=== PATIENT | female | born 1935 | race Caucasian/White ===

== ENCOUNTER 2017-08-26 23:10 | Emergency (ER) | payer OTHER ==
[2017-08-26 23:16] VITALS: TEMP 97.5
--- NOTE | 2017-08-26 23:17 | EDPHY ---
H & P Stated Complaint: Burning sensation in R hand, poss reactin to clindamycin Time Seen by Provider: 08/26/17 23:15 HPI/ROS: HPI CHIEF COMPLAINT: Burning in finger tips of the left hand. HISTORY OF PRESENT ILLNESS: This patient very pleasant 81-year-old female she presents emergency room with sudden onset burning sensation in the finger tips only on the palmar side of her left hand. She was recently seen by her net sorter and diagnosed with a toe infection of the 2nd toe. She had I and D today and placed on clindamycin. She took clindamycin twice today and has otherwise done well but around 10 30 at night she developed sudden-onset burning sensation the finger tips of her left hand. She was concerned she may be having a reaction to her antibiotic. She denies any chest pain or shortness of breath. Denies headache. Denies focal numbness or tingling or weakness. She states she has had this burning sensation in her finger tips before and had evaluated but was unsure what the causes. She does have peripheral neuropathy. 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 She does complain of some pain in her left leg where she has an infection currently. She states there is mild erythema to the left lower extremity. She states the swelling has gotten slightly worse since seen by her doctor earlier today. Past Medical History: AFib with RVR, tachy-aruna syndrome, renal artery stenosis, GERD renal artery stenosis, pneumonia, peripheral neuropathy on lyrica Past Surgical History: No recent surgery but had an I and D on her left foot 2nd toe. Social History: Denies drugs alcohol tobacco products. Family History: Noncontributory ROS REVIEW OF SYSTEMS: A comprehensive 10 point review of systems is otherwise negative aside from elements mentioned in the history of present illness. Exam Constitutional appears well nontoxic no acute distress, triage nursing summary reviewed, vital signs reviewed, awake/alert. Eyes normal conjunctivae and sclera, EOMI, PERRLA. HENT normal inspection, atraumatic, moist mucus membranes, no epistaxis, neck supple/ no meningismus, no raccoon eyes. Respiratory clear to auscultation bilaterally, normal breath sounds, no respiratory distress, no wheezing. Cardiovascular rate normal, regular rhythm, no murmur, no edema, distal pulses normal. Gastrointestinal soft, non-tender, no rebound, no guarding, normal bowel sounds, no distension, no pulsatile mass. Genitourinary no CVA tenderness. Musculoskeletal no midline vertebral tenderness, full range of motion, no calf swelling, no tenderness of extremities, no meningismus, good pulses, neurovascularly intact. Skin left lower extremity: Mild erythema to the left lower extremity specifically anterior tib-fib region, 2nd toe is infected recent I and D bandage in place. Left hand: Good radial pulse. Good cap refill. 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 Burning sensation to the finger tips of the left hand all 5 of them palmar side only. No arm weakness or left hand weakness. Neurologic awake, alert and oriented x 3, AAOx3, moves all 4 extremities equally, motor intact, sensory intact, CN II-XII intact, normal cerebellar, normal vision, normal speech. Psychiatric normal mood/affect. Heme/Lymph/Immune no lymphadenopathy. Differential Diagnosis: Includes but is not limited to in a particular order neuropathy, left lower extremity cellulitis, toe infection, sepsis, bacteremia Medical Decision Making: Plan for this patient IV establishment with blood draw , p.o. Bono for pain control, p.o. Benadryl see if this improves the burning in her left finger tips. Unclear exactly what is causing this. I do not feel that she is having a stroke. She has no focal neuro deficit. Additionally will check basic blood work as she has some mild erythema to the left anterior tib-fib concerning for cellulitis. Re-evaluation: 1246AM: Patient re-evaluated this time. She states the burning sensation in her left finger tips has resolved after Benadryl Bono. Her blood work is reassuring with a electrolytes. Her white count is not elevated. She does not have a fever here. I explained she should watch her left leg closely if the redness or swelling or pain gets worse or she develops fever she should return emergency room. I do feel that she should continue her clindamycin antibiotic for her leg infection until infection. However she finds herself getting burning in her finger tips after she takes her clindamycin I would recommend switching to another antibiotic she understands this. Additionally I discussed return precautions with her she understands return emergency room she develops worsening symptoms questions or concerns including redness, fever, pain, worsening finger pain. 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, possible spinal fusion in future - Social History Smoking Status: Never smoked Constitutional: Initial Vital Signs Temperature (C) 36.4 C 08/26/17 23:14 Heart Rate 75 08/26/17 23:14 Respiratory Rate 20 08/26/17 23:14 Blood Pressure 191/94 H 08/26/17 23:14 O2 Sat (%) 95 08/26/17 23:14 O2 Delivery Mode Room Air Allergies/Adverse Reactions: ampicillin Allergy (Verified 08/26/17 23:11) Penicillins Allergy (Verified 08/26/17 23:11) Home Medications: Medication Instructions Recorded Calcium Carb W/Vit D [Calcium Carb 500 mg PO DAILY 11/23/15 W/Vit D 500/200 (*)] Esomeprazole Mag Trihydrate 40 mg PO DAILY 11/23/15 [Nexium] Estradiol [Vivelle-Dot 0.025MG (*)] 0.025 mg TD TU@0800 11/23/15 Lisinopril [Zestril 40 mg (*)] 40 mg PO DAILY 11/23/15 Pregabalin [Lyrica 50mg (*)] 100 mg PO BID 11/23/15 Simvastatin [Zocor] 20 mg PO HS 11/23/15 Cefuroxime Axetil [Ceftin (*)] 250 mg PO BID #10 tab 11/25/15 Chlorthalidone [Chlorthalidone 25 12.5 mg PO DAILY #30 tab 11/25/15 mg (*)] Ondansetron Odt [Zofran Odt 4 mg 4 mg PO Q4 PRN #20 tab 11/25/15 (*)] amLODIPine BESYLATE [Norvasc 5 mg 5 mg PO BID #60 tab 11/25/15 (*)] Diltiazem [Cardizem Ir Q6hr] 30 mg PO Q6 #120 tab 11/26/15 Medical Decision Making - Data Points Laboratory Results: Laboratory Results 08/26/17 23:46 08/26/17 23:46 08/26/17 08/26/17 23:46 23:46 WBC 8.46 10^3/uL 10^3/uL (3.80-9.50) RBC 4.64 10^6/uL 10^6/uL (4.18-5.33) Hgb 14.1 g/dL g/dL (12.6-16.3) Hct 42.4 % % (38.0-47.0) MCV 91.4 fL fL (81.5-99.8) MCH 30.4 pg pg (27.9-34.1) MCHC 33.3 g/dL g/dL (32.4-36.7) RDW 13.1 % % (11.5-15.2) Plt Count 203 10^3/uL 10^3/uL (150-400) MPV 11.0 fL fL (8.7-11.7) Neut % (Auto) 63.5 % % (39.3-74.2) Lymph % (Auto) 22.8 % % (15.0-45.0) [place] % (Auto) 10.9 % % (4.5-13.0) Eos % (Auto) 1.9 % % (0.6-7.6) Baso % (Auto) 0.5 % % (0.3-1.7) Nucleat RBC Rel Count 0.0 % % (0.0-0.2) Absolute Neuts (auto) 5.38 10^3/uL 10^3/uL (1.70-6.50) Absolute Lymphs (auto) 1.93 10^3/uL 10^3/uL (1.00-3.00) Absolute Monos (auto) 0.92 10^3/uL H 10^3/uL (0.30-0.80) Absolute Eos (auto) 0.16 10^3/uL 10^3/uL (0.03-0.40) Absolute Basos (auto) 0.04 10^3/uL 10^3/uL (0.02-0.10) Absolute Nucleated RBC 0.00 10^3/uL 10^3/uL (0-0.01) Immature Gran % 0.4 % % (0.0-1.1) Immature Gran # 0.03 10^3/uL 10^3/uL (0.00-0.10) Sodium 142 mEq/L mEq/L (135-145) Potassium 4.5 mEq/L mEq/L (3.5-5.2) Chloride 104 mEq/L mEq/L (97-110) Carbon Dioxide 24 mEq/l mEq/l (22-31) Anion Gap 14 mEq/L mEq/L (8-16) BUN 25 mg/dL H mg/dL (7-23) Creatinine 0.8 mg/dL mg/dL (0.6-1.0) Estimated GFR > 60 Glucose 138 mg/dL H mg/dL (70-100) Calcium 10.1 mg/dL mg/dL (8.5-10.4) Medications Given: Discontinued Medications Hydrocodone Bitart/Acetaminophen (Bono 5/325) 1 tab PO EDNOW ONE Stop: 08/26/17 23:33 Last Admin: 08/26/17 23:45 Dose: 1 tab Diphenhydramine HCl (Benadryl) 25 mg PO EDNOW ONE Stop: 08/26/17 23:33 Last Admin: 08/26/17 23:45 Dose: 25 mg Departure - Departure Disposition: Home, Routine, Self-Care Clinical Impression: Cellulitis Qualifiers: Site of cellulitis: extremity Site of cellulitis of extremity: lower extremity Laterality: left Qualified Code(s): L03.116 - Cellulitis of left lower limb Condition: Good Instructions: Cellulitis (ED) Additional Instructions: 1. Return emergency room if he develops worsening pain, redness, swelling. Fever. 2. Antibiotics as prescribed. 3. If you notice your antibiotics every time he take them because you problems please contact her doctor and have them switch you to a different antibiotic. 4. Return emergency room if there is worsening symptoms questions or concerns. Referrals: NONE *PRIMARY CARE P,. [Primary Care Provider] - As per Instructions
[2017-08-26] MEDS ORDERED: HYDROCODONE/APAP 5/325 TAB PO ONE (23:32)
[2017-08-26] MEDS ORDERED: diphenhydrAMINE 25 MG CAP PO ONE (23:32)
[2017-08-26 23:53] LABS: PLATELET COUNT 203 10^3/uL (150-400)
[2017-08-27] MEDS ORDERED: amLODIPine BESYLATE 5 MG TAB PO ONE (00:49)
[2017-08-27] MEDS ORDERED: amLODIPine BESYLATE 5 MG TAB ONE (00:50)
[2017-08-27 01:34] VITALS: BP 166/78; PULSE 73; RESP 16; O2SAT 95
== END 2017-08-27 01:33 | disposition home or self-care (01) ==
DX: L03.116 Cellulitis of left lower limb (principal)